=== PATIENT | female | born 1995 | race Caucasian/White ===

== ENCOUNTER 2022-02-25 06:11 | Emergency (ER) | payer OTHER ==
[~2022-02-25] VITALS: Ht 157.5 cm; Wt 49.9 kg
[2022-02-25] MEDS ORDERED: CEPH500 PO (07:49)
[2022-02-25] MEDS ORDERED: Percocet 5-3251 EACH PO (07:49)
[2022-02-25] MEDS ORDERED: Bactrim Ds Tab1 EACH PO (07:49)
== END 2022-02-25 07:58 | disposition home or self-care (01) ==
LOC: ER 06:11
DX: L08.9 Local infection of the skin and subcutaneous tissue, unspecified (principal); F17.210 Nicotine dependence, cigarettes, uncomplicated
CPT/HCPCS: 73120; 99283-25; A9270